=== PATIENT | male | born 1985 | race Two or more races ===

== ENCOUNTER 2021-02-04 10:40 | Emergency (ER) | payer OTHER ==
[~2021-02-04] VITALS: Ht 175.3 cm; Wt 73.9 kg
== END 2021-02-04 15:47 | disposition home or self-care (01) ==
LOC: ER 10:40
DX: R51.9 Headache, unspecified (principal); K52.9 Noninfective gastroenteritis and colitis, unspecified; Z11.52 Encounter for screening for COVID-19

== ENCOUNTER → 2025-06-11 | Emergency (ER) | payer OTHER ==
[~2025-06-11] VITALS: Ht 175.3 cm; Wt 74.8 kg
[~2025-06-11] MED LIST: 0.9 % SODIUM CHLORIDE 1,000 ML IV ONE; CIPRO500 MG PO; CIPROFLOXACIN IN 5 % DEXTROSE 400 MG/200 ML PIGGYBAG IV ONE; CIPROFLOXACIN IN 5 % DEXTROSE 400 MG/200 ML PIGGYBAG IV STA; HYOSCYAMINE SULFATE 0.125 MG TAB.SUBL ONE; HYOSCYAMINE SULFATE 0.125 MG TAB.SUBL SL ONE; INTESTINEX680 M1 PO; LACTOBACILLUS ACIDOPHILUS 1 CAP CAP PO ONE; LACTOBACILLUS ACIDOPHILUS 1 CAP CAP PO STA; LEVSIN/SL0.125 MG SL
[2025-06-12 00:50] LABS: BASO % 0.5 % (0.1-1.2); EOS # 0.08 (0.04-0.54); EOS % 1.4 % (0.7-7.0); LYMPH # 0.90 (1.18-3.74); LYMPH % 16.0 % (19.3-53.1); MEAN PLATELET VOLUME 9.90 fl (9.4-12.4); MONO # 0.42 (0.24-0.82); MONO % 7.5 % (4.7-12.5); NEUT # 4.19 (1.56-6.13); NEUT % 74.4 % (34.0-71.1); RED CELL DISTRIBUTION WIDTH 12.3 % (11.6-14.4)
[2025-06-12 01:02] LABS: BUN CREA RATIO 10.0 (7.0-25.0); CREATININE SERUM 1.15 mg/dL (0.70-1.30); GFR 70.43; GLUCOSE FASTING 98.0 mg/dL (65-100); OSMOLALITY SERUM 277.0 MOSM/KG (275-295)
[2025-06-12 05:40] VITALS: BP 116/70; O2SAT 99
== END | disposition home or self-care (01) ==
LOC: ER 22:15
PROVIDERS: General Practice
DX: E86.0 Dehydration (principal); R19.7 Diarrhea, unspecified